=== PATIENT | female | born 1950 | race Two or more races ===

== ENCOUNTER 2024-10-06 12:11 | Emergency (ER) | payer OTHER ==
[~2024-10-06] VITALS: Ht 165.1 cm; Wt 81.6 kg
[2024-10-06 12:44] VITALS: BP 131/96; O2SAT 100
[2024-10-06] MEDS ORDERED: PROTONIX IV40 MG IV (12:44)
[2024-10-06] MEDS ORDERED: WELLBUTRIN SR150 MG (12:44)
[2024-10-06] MEDS ORDERED: CANDESARTAN CIL32 MG (12:44)
[2024-10-06] MEDS ORDERED: BARIUM SULFATE 450 ML ORAL.SUSP PO ONE (13:22)
[2024-10-06 13:49] LABS: HEMATOCRIT 41.9 % (36.0-45.00); HEMOGLOBIN 13.8 g/dL (12.0-15.00); MEAN CELL VOLUME 87.7 fL (80.00-100.00); MEAN CORPUSCULAR HEMOGLOBIN 28.8 pg (27.00-32.0); MEAN CORPUSCULAR HGB CONC 32.9 g/dl (32.0-36.0); PLATELET COUNT 241 K/uL (150-450); RED BLOOD COUNT 4.78 M/uL (4.00-6.00); RED CELL DISTRIBUTION WIDTH 12.8 % (11.5-14.5)
[2024-10-06 16:46] LABS: ALBUMIN 4.1 gm/dL (3.4-5.0); BILIRUBIN TOTAL 0.36 mg/dL (0.3-1.2); CALCIUM 9.3 mg/dL (8.5-10.1); CREATININE SERUM 0.77 mg/dL (0.55-1.02); GFR 72.88; GLOBULINA 3.9 G/DL (2.4-3.5); POTASSIUM 4.46 mEq/L (3.5-5.1)
[2024-10-06] MEDS ORDERED: METRONIDAZOLE500 MG PO (18:07)
[2024-10-06] MEDS ORDERED: MIRALAX510 GM PO (18:07)
[2024-10-06] MEDS ORDERED: LACTULOSE20 GM/30 M PO (18:07)
[2024-10-06] MEDS ORDERED: CIPRO500 MG PO (18:07)
[2024-10-06] MEDS ORDERED: LACTULOSE 20 G/30 ML BLIST.PACK PO ONE (18:15)
[2024-10-06] MEDS ORDERED: MAGNESIUM HYDROXIDE 400 MG/5 ML ML PO ONE (18:15)
[2024-10-06] MEDS ORDERED: MINERAL OIL 30 ML BLIST.PACK PO ONE (18:15)
[2024-10-06] MEDS ORDERED: LACTULOSE 20 G/30 ML BLIST.PACK ONE (18:17)
[2024-10-06] MEDS ORDERED: MINERAL OIL 30 ML BLIST.PACK ONE (18:17)
[2024-10-06] MEDS ORDERED: MAGNESIUM HYDROXIDE 30 ML BLIST.PACK PO ONE (18:17)
== END 2024-10-06 18:30 | disposition home or self-care (01) ==
LOC: ER 12:11 → EDBD 12:34 → ER 18:30
PROVIDERS: Emergency Medicine; General Practice
DX: K52.9 Noninfective gastroenteritis and colitis, unspecified (principal); R10.9 Unspecified abdominal pain; Z91.013 Allergy to seafood
CPT/HCPCS: 36415; 74177; 99284; Q9965